=== PATIENT | male | born 1950 | race Two or more races ===

== ENCOUNTER 2017-09-12 22:45 | Inpatient (IN) | payer BC, MEDICARE ==
[~2017-09-12] VITALS: Ht 172.7 cm; Wt 100.8 kg
[2017-09-12 23:39] LABS: BASOPHILS # (AUTO) 0.02 x10^3/uL (0-0.1); BASOPHILS % (AUTO) 0 % (0-1); EOSINOPHILS # (AUTO) 0.19 x10^3/uL (0-0.4); EOSINOPHILS % (AUTO) 4 % (1-7); LYMPHOCYTES # (AUTO) 0.79 x10^3/uL (1-3.4); LYMPHOCYTES % (AUTO) 17 % (22-44); MD NO; MEAN CORPUSCULAR HEMOGLOBIN 30.1 pg (27.5-34.5); MEAN CORPUSCULAR VOLUME 88.6 fL (81-97); MONOCYTES # (AUTO) 0.37 x10^3/uL (0.2-0.8); MONOCYTES % (AUTO) 8 % (2-9); NEUTROPHILS # (AUTO) 3.27 x10^3/uL (1.8-6.8); NEUTROPHILS % (AUTO) 70 % (42-75); PLATELET COUNT 137 x10^3/uL (130-400); RED BLOOD COUNT 4.33 x10^6/uL (4.38-5.82); RED CELL DISTRIBUTION WIDTH 13.8 % (9.4-14.8)
[2017-09-12 23:48] LABS: ALBUMIN 3.5 g/dL (3.4-5.0); ANION GAP 7 mmol/L (5-15); CALCIUM 8.3 mg/dL (8.5-10.1); CHLORIDE 105 mmol/L (98-107)
[2017-09-12 23:53] LABS: ALANINE AMINOTRANSFERASE 47 U/L (12-78); ALKALINE PHOSPHATASE 135 U/L (45-117); CREATININE 1.07 mg/dL (0.7-1.3); TOTAL PROTEIN 6.5 g/dL (6.4-8.2); TROPONIN I < 0.015 ng/mL (0.000-0.045)
[2017-09-12 23:57] LABS: BILIRUBIN,TOTAL 0.5 mg/dL (0.2-1.0)
[2017-09-13] MEDS ORDERED: OMNIPAQUE 350 MG/ML, 100ML BOTTLE ONE (00:26)
[2017-09-13] MEDS ORDERED: UBID100C24 PO (02:28)
[2017-09-13] MEDS ORDERED: LORA1TAB PO (02:28)
[2017-09-13] MEDS ORDERED: DULO30CA2 PO (02:28)
[2017-09-13] MEDS ORDERED: EZET10TA18 PO (02:28)
[2017-09-13] MEDS ORDERED: GLYB5TAB3 PO (02:28)
[2017-09-13] MEDS ORDERED: RESV250C2 PO (02:28)
[2017-09-13] MEDS ORDERED: SITA100T PO (02:28)
[2017-09-13] MEDS ORDERED: MULT-717 PO (02:28)
[2017-09-13] MEDS ORDERED: ATOR80TA PO (02:28)
[2017-09-13] MEDS ORDERED: GLUC1CAP48 PO (02:28)
[2017-09-13] MEDS ORDERED: METF500T5 PO (02:28)
[2017-09-13] MEDS ORDERED: FAMO10TA77 PO (02:28)
[2017-09-13] MEDS ORDERED: HYDR25TA6 PO (02:28)
[2017-09-13] MEDS ORDERED: METO200T47 PO (02:28)
[2017-09-13] MEDS ORDERED: INSU100C SQ-INSULIN (02:28)
[2017-09-13] MEDS ORDERED: INSU100V8 SQ ×2 (02:28)
[2017-09-13] MEDS ORDERED: LOSA25TA5 PO (02:28)
[2017-09-13] MEDS ORDERED: TAMS0.4C2 PO (02:28)
[2017-09-13] MEDS ORDERED: SITA50TA PO (02:28)
[2017-09-13] MEDS ORDERED: ASPI-515 PO (02:28)
[2017-09-13 02:31] VITALS: BP 139/75
[2017-09-13] MEDS ORDERED: hydrALAzine 20 MG/ML, 1ML IVPush PRN (03:00)
[2017-09-13] MEDS ORDERED: OXYcodone IR 5MG TABLET PO PRN (03:00)
[2017-09-13] MEDS ORDERED: ENALAPRILAT 1.25 MG/ML, 2ML IVPush PRN (03:00)
[2017-09-13] MEDS ORDERED: BISACODYL 10 MG SUPP PR PRN (03:00)
[2017-09-13] MEDS ORDERED: ACETAMINOPHEN 325 MG TABLET PO PRN (03:00)
[2017-09-13] MEDS ORDERED: POLYETHYLENE GLYCOL 17 GM PACKET PO PRN (03:00)
[2017-09-13] MEDS ORDERED: morphine SULFATE 10 MG/ML, 1ML IVPush PRN (03:00)
[2017-09-13] MEDS ORDERED: ONDANSETRON 2MG/ML, 2ML IVPush PRN (03:00)
[2017-09-13] MEDS ORDERED: ONDANSETRON ODT 4 MG PO PRN (03:00)
[2017-09-13] MEDS ORDERED: NITROGLYCERIN 0.4 MG BOTTLE (25 TABS) SL PRN (03:00)
[2017-09-13] MEDS ORDERED: ASPIRIN MC SCH (03:30)
[2017-09-13 03:49] LABS: FREE T4 (FREE THYROXINE) 1.07 ng/dL (0.76-1.46); THYROID STIMULATING HORMONE 0.348 mIU/L (0.358-3.740)
[2017-09-13] MEDS: HEPARIN 5,000 UNITS/ML, 1ML SQ SCH ×2 (03:49→11:58)
[2017-09-13] MEDS ORDERED: ASPIRIN 325 MG TABLET EC PO SCH (06:00)
[2017-09-13 06:16] LABS: TROPONIN I < 0.015 ng/mL (0.000-0.045)
[2017-09-13 06:20] LABS: MICROSCOPIC AUTO
[2017-09-13 06:22] LABS: CULTURE INDICATED? NO
[2017-09-13 06:23] VITALS: BP 144/77
[2017-09-13] MEDS: INSULIN LISPRO 100 UNITS/ML, PEN SQ-INSULIN SCH ×2 (07:00→11:57)
[2017-09-13 07:25] VITALS: BP 144/77
[2017-09-13] MEDS ORDERED: INSULIN GLARGINE 100 UNITS/ML, PEN SQ-INSULIN SCH (07:30)
[2017-09-13] MEDS ORDERED: ASPIRIN 81 MG TABLET EC PO SCH (09:00)
[2017-09-13] MEDS ORDERED: FAMOTIDINE 20 MG TABLET PO SCH (09:00)
[2017-09-13] MEDS ORDERED: HYDROCHLOROTHIAZIDE 25 MG TABLET PO SCH (09:00)
[2017-09-13] MEDS ORDERED: EZETIMIBE 10 MG TABLET PO SCH (09:00)
[2017-09-13] MEDS ORDERED: LOSARTAN 25MG TABLET PO SCH (09:00)
[2017-09-13] MEDS ORDERED: TEMPLATE NON-FORMULARY MED. (Ubidecarenone (Coq-10) 100 MG) PO SCH (09:00)
[2017-09-13] MEDS ORDERED: METOPROLOL SUCCINATE 100 MG TAB.ER.24H PO SCH (09:00)
[2017-09-13] MEDS ORDERED: DULOXETINE 30 MG CAPSULE.DR PO SCH (09:00)
[2017-09-13] MEDS ORDERED: RESVERATROL 250 MG PO SCH (09:00)
[2017-09-13] MEDS ORDERED: TAMSULOSIN 0.4 MG CAP.ER.24H PO SCH (09:00)
[2017-09-13] MEDS ORDERED: SENNA/DOCUSATE TABLET PO SCH (09:00)
[2017-09-13] MEDS ORDERED: GlyBURIDE 5 MG TABLET PO SCH (09:00)
[2017-09-13 11:33] VITALS: BP 158/79
[2017-09-13 12:40] LABS: TROPONIN I 0.017 ng/mL (0.000-0.045)
[2017-09-13 13:25] VITALS: BP 172/84
[2017-09-13] MEDS ORDERED: MAGNESIUM SULFATE 2 GM in SODIUM CHLORIDE 0.9% 50 ML IV ONE (14:00)
[2017-09-13] MEDS ORDERED: MAGN64TA7 PO (15:05)
[2017-09-13] MEDS ORDERED: SENN1TAB7 PO (15:05)
[2017-09-13] MEDS ORDERED: ATORVASTATIN 80 MG TABLET PO SCH (21:00)
[2017-09-13] MEDS ORDERED: LORazepam 1MG TABLET PO SCH (21:00)
== END 2017-09-13 16:11 | disposition home or self-care (01) | DRG 392 ==
LOC: ED 23:59 → EDIP 09-13 01:27 → 5SO 09-13 02:06 → DCLOUNGE 09-13 15:59
PROVIDERS: ADMIT Internal Medicine; ATTEND Internal Medicine
DX: K59.00 Constipation, unspecified (principal); E11.9 Type 2 diabetes mellitus without complications; R14.1 Gas pain; R06.09 Other forms of dyspnea; E66.9 Obesity, unspecified; E78.5 Hyperlipidemia, unspecified; F41.1 Generalized anxiety disorder; G47.33 Obstructive sleep apnea (adult) (pediatric); I10 Essential (primary) hypertension; I25.10 Atherosclerotic heart disease of native coronary artery without angina pectoris; I25.2 Old myocardial infarction; K21.9 Gastro-esophageal reflux disease without esophagitis; N40.0 Benign prostatic hyperplasia without lower urinary tract symptoms; Z87.891 Personal history of nicotine dependence; Z95.5 Presence of coronary angioplasty implant and graft; Z68.33 Body mass index [BMI] 33.0-33.9, adult
CPT/HCPCS: 36415; 71045; 71275; 78452; 80053; 81001; 82962; 83036; 83735; 83880; 84100; 84439; 84443; 84484; 85025; 93005; 93017; 96372; 96374; J1644; Q9967; A9502; C9898; J1815